=== PATIENT | female | born 1970 | race Caucasian/White ===

== ENCOUNTER → 2020-05-20 | Outpatient (CLI) | payer OTHER ==
[~2020-05-20] MED LIST: BENADRYL 50MG C50 MG PO; PEPCID20 MG PO; PREDNISONE 20 M20 MG PO; PREDNISONE20 MG PO; PROVENTIL HFA6.7 GM INH; VIBRAMYCIN100 MG PO
== END ==
LOC: US 05-18 09:00
DX: G45.4 Transient global amnesia (principal); I65.23 Occlusion and stenosis of bilateral carotid arteries
CPT/HCPCS: 93880

== ENCOUNTER 2020-06-09 14:37 | Emergency (ER) | payer OTHER ==
[~2020-06-09 14:37] MED LIST changes: -BENADRYL 50MG C50 MG PO; -PEPCID20 MG PO; -PREDNISONE 20 M20 MG PO
[2020-06-09] MEDS ORDERED: PEPCID20 MG PO (17:01)
[2020-06-09] MEDS ORDERED: BENADRYL 50MG C50 MG PO (17:01)
[2020-06-09] MEDS ORDERED: PREDNISONE 20 M20 MG PO (17:01)
== END 2020-06-09 17:20 | disposition home or self-care (01) ==
LOC: ER1 14:37
DX: R21 Rash and other nonspecific skin eruption (principal); T50.995A Adverse effect of other drugs, medicaments and biological substances, initial encounter; I11.9 Hypertensive heart disease without heart failure; Z90.710 Acquired absence of both cervix and uterus; Z90.49 Acquired absence of other specified parts of digestive tract; Z79.01 Long term (current) use of anticoagulants; Z79.899 Other long term (current) drug therapy; F17.210 Nicotine dependence, cigarettes, uncomplicated
CPT/HCPCS: 96374; 96375; 99282; J1200; J2930

== ENCOUNTER → 2020-07-12 | Outpatient (CLI) | payer OTHER ==
[~2020-07-12] MED LIST changes: +BENADRYL 50MG C50 MG PO; +PEPCID20 MG PO; +PREDNISONE 20 M20 MG PO
== END ==
LOC: EMI 15:34
DX: G96.191 Perineural cyst (principal); G44.89 Other headache syndrome; M48.02 Spinal stenosis, cervical region; M25.78 Osteophyte, vertebrae; M50.21 Other cervical disc displacement, high cervical region
CPT/HCPCS: 72141

== ENCOUNTER → 2021-04-11 | Outpatient (CLI) | payer OTHER | LOC: CT 04-05 15:30 | DX: G45.9 Transient cerebral ischemic attack, unspecified (principal); Z00.00 Encounter for general adult medical examination without abnormal findings; R93.0 Abnormal findings on diagnostic imaging of skull and head, not elsewhere classified | CPT/HCPCS: 36415; 70496; 82565; 84520; Q9967 ==